=== PATIENT | female | born 1970 | race Caucasian/White ===

== ENCOUNTER → 2016-08-10 | Day surgery (SDC) | payer BC ==
[~2016-08-10] VITALS: Ht 167.6 cm; Wt 145.1 kg
[~2016-08-10] MED LIST: ATOR1TAB19 PO; LISI10TA4 PO; LR 1,000 ML IV SCH; METF500T PO; MULT1TAB10 PO; ONDANSETRON 4MG/2ML VIAL (J2405) IV PRN; PROPOFOL 500 MG/50 ML VIAL As Ordered ONE; SPIR25TA2 PO; VITA-130 PO; VITA100072 PO; vitamin d PO
--- NOTE | 2016-08-10 07:51 | ROOR ---
Patient Name: Azalia Phan Procedure Date: 08/10/2016 5:58 AM Date of : 1970 Age: 46 Room: Main OR Gender: Female Note Status: Finalized Procedure: Colonoscopy Indications: Hematochezia, Change in bowel habits Providers: Carlos VAZQUEZ MD Referring MD: TENNILLE WEIR MD Requesting Provider: TENNILLE WEIR MD Medicines: Monitored Anesthesia Care Complications: No immediate complications. Procedure: Pre-Anesthesia Assessment: - The heart rate, respiratory rate, oxygen saturations, blood pressure, adequacy of pulmonary ventilation, and response to care were monitored throughout the procedure. The Colonoscope was introduced through the anus and advanced to the terminal ileum, with identification of the appendiceal orifice and IC valve. The colonoscopy was performed without difficulty. The patient tolerated the procedure well. The quality of the bowel preparation was excellent. Findings: The perianal and digital rectal examinations were normal. (Exam: Complete, Prep: Good or Excellent.) Internal hemorrhoids were found during retroflexion. The hemorrhoids were small. The terminal ileum appeared normal. The entire examined colon appeared normal on direct and retroflexion views. Impression: - Exam: Complete, Prep: Good or Excellent. - Internal hemorrhoids (small). - The examined portion of the ileum was normal. - The entire colon is normal on direct and retroflexion views. - No specimens collected. Recommendation: - Use fiber, for example Citrucel, Fibercon, Konsyl or Metamucil. Carlos Vazquez MD Carlos VAZQUEZ MD 08/10/2016 7:51:43 AM This report has been signed electronically. Number of Addenda: 0 Note Initiated On: 08/10/2016 5:58 AM Estimated Blood Loss: Estimated blood loss: none.
[2016-08-10 09:05] VITALS: BP 120/64
== END | disposition home or self-care (01) ==
LOC: M SDC 05:58
PROVIDERS: ATTEND Internal Medicine Gastroenterology
DX: K92.1 Melena (principal); R19.4 Change in bowel habit; K64.8 Other hemorrhoids; I10 Essential (primary) hypertension; E78.00 Pure hypercholesterolemia, unspecified; E28.2 Polycystic ovarian syndrome; R19.7 Diarrhea, unspecified; R06.83 Snoring; Z88.1 Allergy status to other antibiotic agents; Z91.013 Allergy to seafood; Z91.018 Allergy to other foods; Z98.51 Tubal ligation status; Z79.899 Other long term (current) drug therapy